=== PATIENT | male | born 1990 | race Asian ===

== ENCOUNTER 2018-09-09 20:34 | Emergency (ER) | payer OTHER ==
[~2018-09-09] VITALS: Ht 175.3 cm; Wt 72.6 kg
[2018-09-09 20:37] VITALS: BP 83/43
[2018-09-09] MEDS ORDERED: ULTRAM 50MG TAB50 MG PO (21:14)
[2018-09-09] MEDS ORDERED: MOBIC15 MG PO (21:14)
== END 2018-09-09 22:35 | disposition home or self-care (01) ==
LOC: EDBD 20:34 → ER 20:34
DX: S93.492A Sprain of other ligament of left ankle, initial encounter (principal); X50.1XXA Overexertion from prolonged static or awkward postures, initial encounter; Y93.75 Activity, martial arts; Y92.89 Other specified places as the place of occurrence of the external cause; Y99.9 Unspecified external cause status

== ENCOUNTER 2018-09-17 19:21 | Emergency (ER) | payer OTHER ==
[~2018-09-17] VITALS: Ht 175.3 cm; Wt 74.8 kg
[~2018-09-17 19:21] MED LIST: MOBIC15 MG PO; ULTRAM 50MG TAB50 MG PO
[2018-09-17 19:23] VITALS: BP 110/72
[2018-09-17] MEDS ORDERED: TRAMADOL 50 MG50 MG PO (19:51)
[2018-09-17] MEDS ORDERED: MOBIC15 MG PO (19:52)
== END 2018-09-17 19:58 | disposition home or self-care (01) ==
LOC: ER 19:21
DX: S93.492A Sprain of other ligament of left ankle, initial encounter (principal); X50.1XXA Overexertion from prolonged static or awkward postures, initial encounter; Y92.89 Other specified places as the place of occurrence of the external cause; Y93.89 Activity, other specified; Y99.8 Other external cause status